=== PATIENT | male | born 1990 | race African-American/Black ===

== ENCOUNTER 2017-12-17 14:50 | Emergency (ER) | payer SELFPAY ==
[~2017-12-17] VITALS: Ht 172.7 cm; Wt 63.5 kg
[2017-12-17] MEDS ORDERED: SODIUM CHLORIDE 0.9% 1000ML 1,000 ML IV SCH ×2 (15:15→16:15)
[2017-12-17 15:45] LABS: ANION GAP 22.9 mmol/L (8-16); CALCIUM 11.4 mg/dL (8.4-10.2); CREATININE, SERUM 2.1 mg/dL (0.72-1.25); POTASSIUM 3.9 mmol/L (3.5-5.1)
[2017-12-17 15:58] LABS: CREATINE KINASE 345 IU/L (30-200)
[2017-12-17 18:26] LABS: ANION GAP 15.6 mmol/L (8-16); BLOOD UREA NITROGEN 16 mg/dL (7-26); BUN/CREATININE RATIO 11 (6-25); CARBON DIOXIDE 22 mmol/L (22-29); CHLORIDE 104 mmol/L (98-107); CREATININE, SERUM 1.48 mg/dL (0.72-1.25); EST GLOMERULAR FILTRATION RATE > 60 ML/MIN (60-); POTASSIUM 3.6 mmol/L (3.5-5.1); SODIUM 138 mmol/L (136-145)
[2017-12-17 18:29] LABS: GLUCOSE 56 mg/dL (74-118)
[2017-12-17 19:03] VITALS: BP 138/82
== END 2017-12-17 19:15 | disposition home or self-care (01) ==
LOC: ER 14:50
DX: R42 Dizziness and giddiness (principal); T67.2XXA Heat cramp, initial encounter; T67.3XXA Heat exhaustion, anhydrotic, initial encounter; N17.9 Acute kidney failure, unspecified
CPT/HCPCS: 36415; 80048; 82550; 82553; 84484; 99283; J7030